=== PATIENT | male | born 2000 | race Caucasian/White ===

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

== ENCOUNTER 2022-01-18 10:56 | Emergency (ER) | payer OTHER, BC ==
[2022-01-18 11:34] LABS: ANION GAP 10.6 meq/L (7-15)
== END 2022-01-18 12:04 | disposition home or self-care (01) ==
LOC: LL.ED 10:56
DX: S13.4XXA Sprain of ligaments of cervical spine, initial encounter (principal); V69.9XXA Occupant (driver) (passenger) of heavy transport vehicle injured in unspecified traffic accident, initial encounter; Y92.410 Unspecified street and highway as the place of occurrence of the external cause
CPT/HCPCS: 36415; 72040; 80053; 85025; 99283